=== PATIENT | male | born 2000 | race Caucasian/White ===

== ENCOUNTER 2021-07-25 07:25 | Day surgery (SDC) | payer OTHER ==
[~2021-07-25] VITALS: Ht 188 cm; Wt 96.3 kg
--- NOTE | 2021-07-25 10:43 | NUR ---
07/25/21 Dony3 Aleyda Guzman PATIENT RECIEVED A TOTAL OF 100 MCG OF FENTANYL DURING STEP-DOWN CARE DUE TO PAIN OF AN 8 ON A 0-10 PAIN SCALE.
== END 2021-07-25 10:46 | disposition home or self-care (01) ==
LOC: ORSCSDS 07:25
PROVIDERS: Orthopaedic Surgery
PROC: 0SBD4ZZ Excision of Left Knee Joint, Percutaneous Endoscopic Approach (ICD-10-PCS; principal; 2021-07-25 08:45)
DX: S83.242A Other tear of medial meniscus, current injury, left knee, initial encounter (principal)
CPT/HCPCS: A9270; C1713; J0171; J0690; J1100; J1885; J2250; J2405; J2704; J2795; J3010; J7120

== ENCOUNTER 2022-08-16 05:41 | Emergency (ER) | payer OTHER ==
[~2022-08-16] VITALS: Ht 185.4 cm; Wt 95.2 kg
[2022-08-16] MEDS ORDERED: PERIDEX15 ML MM (06:36)
== END 2022-08-16 07:09 | disposition home or self-care (01) ==
LOC: ER 05:41
DX: S01.511A Laceration without foreign body of lip, initial encounter (principal); W21.03XA Struck by baseball, initial encounter
CPT/HCPCS: 12013; 99282-25